=== PATIENT | female | born 1990 | race Caucasian/White ===

== ENCOUNTER 2017-01-28 07:00 | Emergency (ER) | payer BC ==
[2017-01-28 07:22] VITALS: BP 118/61
--- NOTE | 2017-01-28 07:33 | UC ---
Throat Pain/Nasal Cecil HPI - HPI Summary HPI Summary: SINUS CONGESTION, CHEST CONGESTION- PRODUCTIVE COUGH, FATIGUE FOR TWO DAYS. FELT LIGHT HEADED YESTERDAY. CHILLS AND FEVER ON AND OFF. VOMITED ONCE THIS MORNING. PT IS 2 OR 3 MONTHS WELL. HAS NOT HAD HER FIRST OB VISIT YET. [ End ] - History of Current Complaint Chief Complaint: UCRespiratory Stated Complaint: HEAD CONGESTION Time Seen by Provider: 01/28/17 07:24 Hx Obtained From: Patient Hx Last Menstrual Period: SOMETIME IN NOVEMBER OR OCTOBER , PT NOT SURE ?: Yes Onset/Duration: Gradual Onset Severity: Mild Cough: Productive Associated Signs & Symptoms: Positive: Negative - Allergies/Home Medications Allergies/Adverse Reactions: Allergies Allergy/AdvReac Type Severity Reaction Status Date / Time Cefaclor [From [facility]] Allergy Rash Verified 01/28/17 07:11 PMH/Surg Hx/FS Hx/Imm Hx Previously Healthy: Yes - Surgical History Surgical History: Yes Surgery Procedure, Year, and Place: TONSILLECTOMY - Social History Alcohol Use: None Substance Use Type: None Smoking Status (MU): Never Smoked Tobacco - Immunization History Most Recent Influenza Vaccination: immunized at work Most Recent Tetanus Shot: 06/17/15 Most Recent Pneumonia Vaccination: not indicated Review of Systems Constitutional: Fatigue Skin: Negative Eyes: Negative ENT: Sore Throat, Nasal Discharge Respiratory: Cough Cardiovascular: Negative Gastrointestinal: Negative Genitourinary: Negative Motor: Negative Neurovascular: Negative Musculoskeletal: Negative Neurological: Negative Psychological: Negative All Other Systems Reviewed And Are Negative: Yes Physical Exam Triage Information Reviewed: Yes Appearance: Well-Appearing, No Pain Distress, Well-Nourished Vital Signs: Initial Vital Signs Temp 98.4 F 01/28/17 07:12 Pulse 89 01/28/17 07:12 Resp 16 01/28/17 07:12 BP 118/61 01/28/17 07:12 Pulse Ox 100 01/28/17 07:12 Vital Signs Reviewed: Yes Eye Exam: Normal ENT Exam: Normal Dental Exam: Normal Neck exam: Normal Neck: Positive: 1 Respiratory Exam: Normal Cardiovascular Exam: Normal Abdominal Exam: Normal Musculoskeletal Exam: Normal Neurological Exam: Normal Psychological Exam: Normal Skin Exam: Normal Throat Pain/Nasal Course/Dx - Course Assessment/Plan: Patient with history of bronchitis that can become pneumonia. At this time she is in first trimester. We will advise namrata warren Halls Lozenges and if Symptoms worsen with bronchitis symptoms in 4-5 days then start the amoxicillin and counseled patient on C diff and SE - Differential Dx/Diagnosis Differential Diagnosis/HQI/PQRI: Pharyngitis, Sinusitis, Tonsillitis, URI Provider Diagnoses: Upper Respiratory Infection Discharge - Discharge Plan Condition: Good Disposition: HOME Prescriptions: Amoxicillin (*) [Amoxicillin 875 MG (*)] 875 mg PO BID #20 tab Patient Education Materials: Upper Respiratory Infection (ED) Referrals: Doyle CRUZ,Nadia Schmid [Nurse Practitioner] - 3 Days Additional Instructions: As we discussed you likely have a viral infection but if your symptoms worsen over the next 4-5 days then you may start the antibiotic.
== END 2017-01-28 07:58 | disposition home or self-care (01) ==
LOC: UCCORT 07:00
DX: O26.891 Other specified pregnancy related conditions, first trimester (principal); J06.9 Acute upper respiratory infection, unspecified; Z3A.00 Weeks of gestation of pregnancy not specified; Z88.1 Allergy status to other antibiotic agents
CPT/HCPCS: 99212; G0463

== ENCOUNTER 2017-07-24 20:54 | Observation (INO) | payer BC ==
[2017-07-24] MEDS ORDERED: NS 0.9% 1000 ML* 2,000 ML IV ONE (21:20)
[2017-07-24 22:01] LABS: Hematocrit 35 % (35-47); Hemoglobin 11.8 g/dl (12.0-16.0); Mean Corpuscular HGB Conc 34 g/dl (31-36); Mean Corpuscular Hemoglobin 30 pg (27-31); Mean Corpuscular Volume 88 fL (80-97); Mean Platelet Volume 10 um3 (7.4-10.4); Red Cell Distribution Width 13 % (10.5-15); White Blood Count 11.2 10^3/ul (3.5-10.8)
[2017-07-24 22:17] LABS: Albumin 3.3 g/dL (3.2-5.2); Calcium 8.4 mg/dL (8.6-10.3); EGFR African American 154.2 (>60); EGFR Non-African American 119.9 (>60); Globulin 2.5 g/dL (2-4); Potassium 3.7 mmol/L (3.5-5.0); Total Bilirubin 0.5 mg/dL (0.2-1.0); Total Protein 5.8 g/dL (6.4-8.9)
[2017-07-24 22:20] LABS: Troponin I 0.11 ng/mL (<0.04)
[2017-07-24 22:40] LABS: TSH (Thyroid Stimulating Horm) 1.25 mcIU/mL (0.34-5.60)
[2017-07-24 22:55] LABS: Urine Bilirubin Negative (Negative); Urine Glucose Negative (Negative); Urine Nitrite Negative (Negative)
[2017-07-24] MEDS ORDERED: Al Hydrox/Mg Hydrox/Simet LIQ* 30 ML UDC PO PRN (22:58)
[2017-07-24] MEDS ORDERED: Ondansetron INJ* 2 MG/ML VIAL IV PRN (22:58)
[2017-07-24] MEDS ORDERED: Acetaminophen TAB* 325 MG PO PRN (22:58)
--- NOTE | 2017-07-24 23:04 | ED ---
Arpan Partida Gabriel, scribed for Lux Garcia on 07/24/17 at 2112 . Palpitations / Dysrhythmia - HPI Summary HPI Summary: This patient is a 27 year old F BIBA to [facility] accompanied by boyfriend with a chief complaint of palpitations since PROP DRAWER. Pt states 90 minutes ago her HR was over 200BPM.Patient reports sob. Patient denies abd pain, cp, and vaginal bleeding. Patient is 33 weeks . - History of Current Complaint Chief Complaint: EDDysrhythmPalp Time Seen by Provider: 07/24/17 21:00 Hx Obtained From: Patient Onset/Duration: Sudden Onset, Still Present - but has dropped Timing: Constant Aggravating: Position - lying - Allergy/Home Medications Allergies/Adverse Reactions: Allergies Allergy/AdvReac Type Severity Reaction Status Date / Time Cefaclor [From [facility]] Allergy Hives Verified 07/24/17 21:02 Home Medications: Home Medications Vitamin [Calna] 1 tab PO 07/24/17 [History] PMH/Surg Hx/FS Hx/Imm Hx Previously Healthy: No Endocrine/Hematology History: Denies: Hx Diabetes Cardiovascular History: Reports: Other Cardiovascular Problems/Disorders - hx of tachycardia Denies: Hx Myocardial Infarction Respiratory History: Denies: Hx Asthma, Hx Chronic Obstructive Pulmonary Disease (COPD) Sensory History: Denies: Hx Legally Blind Infectious Disease History: No Infectious Disease History: Denies: Traveled Outside the [place] in Last 30 Days - Family History Known Family History: Negative: Hypertension, Diabetes - Social History Alcohol Use: None Hx Substance Use: No Substance Use Type: Reports: None Hx Tobacco Use: No Smoking Status (MU): Never Smoked Tobacco Review of Systems Positive: Palpitations. Negative: Chest Pain Positive: Shortness Of Breath Negative: Abdominal Pain Genitourinary: Negative - vaginal bleeding All Other Systems Reviewed And Are Negative: Yes Physical Exam - Summary Physical Exam Summary: Appearance: Well appearing, no pain distress Skin: warm, dry, reflects adequate perfusion Head/face: normal Eyes: EOMI, OSCAR ENT: normal Neck: supple, non-tender Respiratory: CTA, breath sounds present Cardiovascular: Tachycardic, pulses symmetrical Abdomen: . Distended ABD Bowel: present Musculoskeletal: normal, strength/ROM intact Neuro: normal, sensory motor intact, A&Ox3 Triage Information Reviewed: Yes Vital Signs On Initial Exam: Initial Vitals Temp Pulse Resp BP Pulse Ox 97.8 F 135 23 145/95 99 07/24/17 21:00 07/24/17 21:00 07/24/17 21:00 07/24/17 21:00 07/24/17 21:00 Vital Signs Reviewed: Yes Diagnostics - Vital Signs Vital Signs Temp Pulse Resp BP Pulse Ox 07/24/17 21:00 97.8 F 135 23 145/95 99 - Laboratory Lab Results: Lab Results 07/24/17 07/24/17 07/24/17 Range/Units 21:45 21:45 21:45 WBC 11.2 H (3.5-10.8) 10^3/ul RBC 4.00 (4.0-5.4) 10^6/ul Hgb 11.8 L (12.0-16.0) g/dl Hct 35 (35-47) % MCV 88 (80-97) fL MCH 30 (27-31) pg MCHC 34 (31-36) g/dl RDW 13 (10.5-15) % Plt Count 164 (150-450) 10^3/ul MPV 10 (7.4-10.4) um3 Neut % (Auto) 73.7 (38-83) % Lymph % (Auto) 19.7 L (25-47) % [place] % (Auto) 5.6 (1-9) % Eos % (Auto) 0.7 (0-6) % Baso % (Auto) 0.3 (0-2) % Absolute Neuts (auto) 8.3 H (1.5-7.7) 10^3/ul Absolute Lymphs (auto) 2.2 (1.0-4.8) 10^3/ul Absolute Monos (auto) 0.6 (0-0.8) 10^3/ul Absolute Eos (auto) 0.1 (0-0.6) 10^3/ul Absolute Basos (auto) 0 (0-0.2) 10^3/ul Absolute Nucleated RBC 0.01 10^3/ul Nucleated RBC % 0 D-Dimer, Quantitative 261 H (Less Than 230) ng/mL Sodium 136 (133-145) mmol/L Potassium 3.7 (3.5-5.0) mmol/L Chloride 106 (101-111) mmol/L Carbon Dioxide 24 (22-32) mmol/L Anion Gap 6 (2-11) mmol/L BUN 9 (6-24) mg/dL Creatinine 0.60 (0.51-0.95) mg/dL Est GFR ( Amer) 154.2 (>60) Est GFR (Non-Af Amer) 119.9 (>60) BUN/Creatinine Ratio 15.0 (8-20) Glucose 106 H (70-100) mg/dL Calcium 8.4 L (8.6-10.3) mg/dL Total Bilirubin 0.50 (0.2-1.0) mg/dL AST 14 (13-39) U/L ALT 11 (7-52) U/L Alkaline Phosphatase 100 (34-104) U/L Troponin I 0.11 H* (<0.04) ng/mL Total Protein 5.8 L (6.4-8.9) g/dL Albumin 3.3 (3.2-5.2) g/dL Globulin 2.5 (2-4) g/dL Albumin/Globulin Ratio 1.3 (1-3) TSH 1.25 (0.34-5.60) mcIU/mL Urine Color Urine Appearance Urine pH (5-9) Ur Specific [place] (1.010-1.030) Urine Protein (Negative) Urine Ketones (Negative) Urine Blood (Negative) Urine Nitrate (Negative) Urine Bilirubin (Negative) Urine Urobilinogen (Negative) Ur Leukocyte Esterase (Negative) Urine Glucose (Negative) 07/24/ Range/Units 22:27 WBC (3.5-10.8) 10^3/ul RBC (4.0-5.4) 10^6/ul Hgb (12.0-16.0) g/dl Hct (35-47) % MCV (80-97) fL MCH (27-31) pg MCHC (31-36) g/dl RDW (10.5-15) % Plt Count (150-450) 10^3/ul MPV (7.4-10.4) um3 Neut % (Auto) (38-83) % Lymph % (Auto) (25-47) % [place] % (Auto) (1-9) % Eos % (Auto) (0-6) % Baso % (Auto) (0-2) % Absolute Neuts (auto) (1.5-7.7) 10^3/ul Absolute Lymphs (auto) (1.0-4.8) 10^3/ul Absolute Monos (auto) (0-0.8) 10^3/ul Absolute Eos (auto) (0-0.6) 10^3/ul Absolute Basos (auto) (0-0.2) 10^3/ul Absolute Nucleated RBC 10^3/ul Nucleated RBC % D-Dimer, Quantitative (Less Than 230) ng/mL Sodium (133-145) mmol/L Potassium (3.5-5.0) mmol/L Chloride (101-111) mmol/L Carbon Dioxide (22-32) mmol/L Anion Gap (2-11) mmol/L BUN (6-24) mg/dL Creatinine (0.51-0.95) mg/dL Est GFR ( Amer) (>60) Est GFR (Non-Af Amer) (>60) BUN/Creatinine Ratio (8-20) Glucose (70-100) mg/dL Calcium (8.6-10.3) mg/dL Total Bilirubin (0.2-1.0) mg/dL AST (13-39) U/L ALT (7-52) U/L Alkaline Phosphatase (34-104) U/L Troponin I (<0.04) ng/mL Total Protein (6.4-8.9) g/dL Albumin (3.2-5.2) g/dL Globulin (2-4) g/dL Albumin/Globulin Ratio (1-3) TSH (0.34-5.60) mcIU/mL Urine Color Straw Urine Appearance Clear Urine pH 6.0 (5-9) Ur Specific [place] 1.003 L (1.010-1.030) Urine Protein Negative (Negative) Urine Ketones Negative (Negative) Urine Blood Negative (Negative) Urine Nitrate Negative (Negative) Urine Bilirubin Negative (Negative) Urine Urobilinogen Negative (Negative) Ur Leukocyte Esterase Negative (Negative) Urine Glucose Negative (Negative) Result Diagrams: 07/24/17 21:45 07/24/17 21:45 Lab Statement: Any lab studies that have been ordered have been reviewed, and results considered in the medical decision making process. - EKG 21:08 Cardiac Rate: Tachycardia EKG Rhythm: Sinus Tachycardia - 131 BPM EKG Interpretation: No acute changes Course/Dx - Course Assessment/Plan: This patient is a 27 year old F BIBA to [facility] accompanied by boyfriend with a chief complaint of palpitations since 90 min PROP DRAWER. . An EKG reveals sinus tachycardia at 131 BPM. Blood work was taken with positive troponins and . In the ED course the patient was given IV fluids. We discussed patient care with Dr. Lisette bassett and they agreed to admit the patient. Patient will be admitted for palpitations. The patient is agreeable with this plan. - Diagnoses Differential Diagnosis/HQI/PQRI: Positive: Coronary Artery Disease, Paroxymal SVT Provider Diagnoses: Palpitations, Troponin level elevated, - Physician Notifications Discussed Care Of Patient With: Charisma Knox Time Discussed With Above Provider: 22:32 Instructed by Provider To: Other - We discussed patient care with Dr. Lisette bassett and they agreed to admit the patient. Discharge - Discharge Plan Condition: Stable Disposition: ADMITTED TO [facility] Referrals: Luis Luna DO [Primary Care Provider] - The documentation as recorded by the Arpan arguello Gabriel accurately reflects the service I personally performed and the decisions made by , Lux Gracia.
[2017-07-24] MEDS ORDERED: Aspirin EC Low Dose* 81 MG TAB.EC PO ONE (23:12)
[2017-07-24 23:23] LABS: Magnesium 1.7 mg/dL (1.9-2.7)
[2017-07-25] MEDS ORDERED: Aspirin EC Low Dose* 81 MG TAB.EC ONE (00:03)
[2017-07-25] MEDS ORDERED: Magnesium Sulfate 2 GM IV* 2 GM/50 ML BAG IVPB ONE (01:18)
[2017-07-25] MEDS ORDERED: Heparin DRIP 25,000 UNITS(*) 25,000 UNITS/500 ML BAG IVPB SCH (01:30)
[2017-07-25] MEDS ORDERED: Heparin VIAL(*) 5000 UNITS/ML VIAL (FIVE THOUSAND) IV SCH (02:00)
--- NOTE | 2017-07-25 04:43 | HP ---
CC: Dr. Luis Luna; Dr. Hans Munoz; Dr. Miguelangel Skinner * HISTORY AND PHYSICAL: DATE OF ADMISSION: 07/24/17 TIME OF EVALUATION: 2300. PRIMARY CARE PHYSICIAN: Dr. Luis Luna. TOBACCO BALER: Hans Munoz MD CUSTOMER SUCCESS REPRESENTATIVE: Miguelangel Skinner MD CHIEF COMPLAINT: Palpitations, chest pain. HISTORY OF PRESENT ILLNESS: This is a 27-year-old female with a past medical history of SVT, who is also 33 weeks , who presented to the emergency room via EMS after having an hour and a half of SVT. She states her heart rate was greater than 230. She tried vagal maneuvers with no improvement. She called TOBACCO BALER on-call and they recommended calling EMS and come in to the emergency room. By the time patient arrived, her heart rate had improved down to the 130s and now is in the low 100s. She states she has slight chest discomfort, which she describes as soreness. No pressure or pain. No shortness of breath. No nausea. She is starting to develop a headache, otherwise remaining review of systems is negative. She states she feels the baby moving and is active. She states 4 or 5 years ago she was diagnosed with SVT. She was followed by a hat conditioner in [place] where they started her on blood pressure medication, oxygen, fluids, and Holter monitor. She has since been off the blood pressure pills. Two years ago, she had an attack of SVT off her blood pressure medications that she did not follow up with. When she was in her first trimester, she had palpitations, non-SVT, she followed up with the hat conditioner, they did not want to start her on any medication until she was out of the first trimester as they thought it would get better and it did. In the emergency room, the patient had labs, EKG, she was given a liter of normal saline, was referred to the hospitalist service for further evaluation. PAST MEDICAL HISTORY: 1. History of SVT, followed by Cardiology in [place]. 2. Thirty-three weeks . MEDICATIONS: vitamin every 2 days. ALLERGIES: CEFACLOR, hives. FAMILY HISTORY: No history of SVT in the family. SOCIAL HISTORY: The patient lives at home with her . This is her second . She has mentioned she had no problems with her first with SVT. 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 No history of smoking, alcohol, or illicit drugs. Her healthcare proxy is her . Code status is full code. REVIEW OF SYSTEMS: A 14-point review of systems reviewed, pertinent positives are mentioned in the HPI, otherwise negative. PHYSICAL EXAMINATION GENERAL: In no acute distress. Resting comfortably with her and father -in- law at the bedside. VITAL SIGNS: Temperature 97.8, pulse rate 109, respiratory rate 16, oxygen saturation 99% on room air, blood pressure 103/80. HEENT: Head normocephalic. Pupils equal and reactive, anicteric. Oropharynx, mucous membranes are moist. NECK: Supple. No lymphadenopathy. LUNGS: Clear to auscultation. No wheeze, rhonchi or rales. CARDIAC: Tachycardia with soft systolic murmur heard throughout. ABDOMEN: Soft, consistent with a gestational . EXTREMITIES: No clubbing, cyanosis or edema. +2 DPs. NEUROLOGIC: Alert and oriented x3. No focal neurologic deficits. LABORATORY DATA: White count 11.2, hemoglobin 11.8, hematocrit 35, platelets 164. D-dimer 261. Sodium 136, potassium 3.7, chloride 106, bicarb 24, BUN 9, creatinine 0.6, glucose 106. Troponin 0.11. TSH 1.25. Urinalysis is unremarkable. RADIOGRAPHIC DATA: EKG shows sinus tachycardia with no significant abnormalities. Heart rate 130. ASSESSMENT AND PLAN: This is a 27-year-old female with past medical history of supraventricular tachycardia, is 33 weeks , presents to the emergency room with supraventricular tachycardia. 1. Supraventricular tachycardia. Assessment: The patient was able to convert out of supraventricular tachycardia using vagal maneuvers; however, her supraventricular tachycardia persisted for over an hour and a half. Her troponin bump is likely related to her supraventricular tachycardia. No significant chest pain at this time. Unremarkable EKG changes. I did speak with OB, who agreed with a baby aspirin and they are going to run a strip to review. I also spoke with Dr. Skinner regarding patient's bumped troponin. He recommended repeating troponin, if it is higher than initial one, we will start her on heparin drip. Otherwise, we will admit her to [address] [place] [address], trend her troponins, obtain an echo, waiting on a magnesium level to come back and repeat an EKG now that her heart rate has lowered and follow up with Cardiology and TOBACCO BALER in the morning. 2. FEN: Place her on regular diet. 3. DVT prophylaxis: The patient is low risk. We will encourage ambulation. 4. Code status: Full code. TIME SPENT: Patient time greater than 60 minutes were spent doing history and physical, more than half the time spent in direct patient contact. [id number]/CPS #: [id number] UDAY
[2017-07-25 07:25] VITALS: BP 112/73
[2017-07-25] MEDS ORDERED: Aspirin EC Low Dose* 81 MG TAB.EC PO SCH (09:00)
--- NOTE | 2017-07-25 19:32 | CONS ---
CC: Dr. Hans Munoz; Dr. Luna, [facility]. * CARDIOLOGY CONSULTATION: DATE OF CONSULT: 07/25/17. INDICATION FOR CONSULTATION: Chest pain, SVT. HISTORY OF PRESENT ILLNESS: Patient is a 27-year-old female with a history of SVT. She is currently 33 weeks . Patient was at home yesterday and had an onset of SVT that lasted for approximately an hour and then decided to call the ambulance. On arrival, she was in SVT with a stable blood pressure. She was transported to the emergency room. On arrival to the emergency room, patient broke to a sinus tachycardia at 130 beats per minute and ultimately came down to a heart rate of 100. During that time, the patient had mild chest pain. She denied any shortness of breath. She denied any orthopnea. She denied any lightheadedness or dizziness. PAST MEDICAL HISTORY: Significant for SVT. Her last episode was in 2011. She takes no chronic medications for it. She is 33 weeks . CURRENT MEDICATIONS: vitamins. ALLERGIES: To CEFACLOR. FAMILY HISTORY: No family history of early coronary artery disease. SOCIAL HISTORY: She lives with her . 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 This is her second . She denies alcohol or tobacco use. PHYSICAL EXAM: Height is 5 feet 4 inches, weight is 163 pounds, temperature 97.5, heart rate 104, respiratory rate is 20, blood pressure 124/74, oxygen saturation 100% on room air. Sclerae anicteric. Oropharynx is pink without erythema. Carotids are 2+ without bruits. JVD is normal. Thyroid is normal. Cardiac Exam: S1, S2 without any murmurs, rubs, or gallops. Lungs are clear to auscultation. Abdomen is 33 weeks gravid. Normoactive bowel sounds. Extremities show minimal edema. She has 2+ pulses throughout. Patient is awake and alert and oriented. She moves all 4 extremities equally. LABORATORY DATA/DIAGNOSTIC STUDIES: CBC within normal limits. Chemistries within normal limits. BNP is 25. TSH 1.25. Initial troponin 0.11. Peak troponin 0.39. AST and ALT within normal limits. EKG demonstrates sinus tachycardia, otherwise unremarkable. Echocardiogram is pending. IMPRESSION: This is a 27-year-old female who has a history of supraventricular tachycardia, who had a prolonged episode of supraventricular tachycardia yesterday. In the emergency room, she broke to normal sinus rhythm on her own. Patient was given hydration. At this point, I do not think any issues occur with supraventricular tachycardia. This is her first episode in 5 years. Patient's minimal elevation in troponin is due to her long episode of supraventricular tachycardia. Patient will get an echocardiogram today. The patient will be discharged with metoprolol tartrate 25 mg to be taken as needed when she has an episode of supraventricular tachycardia. I will see the patient in followup. This case was discussed with Dr. Pena. [id number]/CPS #: [id number] UDAY
--- NOTE | 2017-07-26 00:51 | DS ---
CC: Dr. Krause; Dr. Luna DISCHARGE SUMMARY: DATE OF ADMISSION: DATE OF DISCHARGE: 07/25/17 HISTORY: This 27-year-old woman came with palpitations, shortness of breath, and lightheadedness. She had a history of SVT about 2 or 3 years ago. She sees the medical anthropologist in [place] on an infrequent basis. She does generally have this type of palpitation. She immediately recognized that she had SVT again. By the time she got to the emergency room, she had had it for about an hour and half. Vagal maneuvers did not help. The patient did eventually convert with vagal maneuvers. She is seen in consultation by Dr. Alexis who recommended using metoprolol on a p.r.n. basis and waiting 10 minutes to take the metoprolol and then call him or another provider for further guidance. She did have an echocardiogram on the day of discharge. I do not have that report as yet. I note her troponin peaked at 0.39, almost certainly related to her tachycardia. I note she is 33 weeks . FINAL DIAGNOSES: 1. Paroxysmal supraventricular tachycardia. 2. Thirty-three weeks . DISCHARGE MEDICATIONS: 1. Metoprolol tartrate 25 mg b.i.d. p.r.n. for palpitations, dispensed 10. 2. vitamin 1 daily. [id number]/[facility] #: [id number] MTDD
== END 2017-07-25 11:30 | disposition home or self-care (01) ==
LOC: EDSEX → ED 20:54 → MEDTELE 22:58 → MERGE 22:58
PROVIDERS: ADMIT Pediatrics; ATTEND Internal Medicine
DX: I47.1 Supraventricular tachycardia (principal); O26.893 Other specified pregnancy related conditions, third trimester; Z3A.33 33 weeks gestation of pregnancy; R06.02 Shortness of breath; R42 Dizziness and giddiness; R07.9 Chest pain, unspecified; R74.8 Abnormal levels of other serum enzymes
CPT/HCPCS: 36415; 80053; 81003; 83735; 83880; 84443; 84484; 85025; 85379; 85610; 85730; 93005; 93306; 96365; 96366; 96367; 96372; 99284; A9270-GY; G0378; J1644; J3475

== ENCOUNTER 2017-09-04 07:12 | Inpatient (IN) | payer BC ==
[2017-09-04] MEDS ORDERED: Oxytocin in LR* 20 UNITS/1,000 ML BAG IVPB SCH ×2 (09:00→17:00)
[2017-09-04 09:19] LABS: ABS Basophils 0 10^3/ul (0-0.2); ABS Eosinophils 0.1 10^3/ul (0-0.6); ABS Lymphocytes 1.6 10^3/ul (1.0-4.8); ABS Monocytes 0.5 10^3/ul (0-0.8); ABS Neutrophils 5.3 10^3/ul (1.5-7.7); ABS Nucleated RBC 0 10^3/ul; Eosinophil % 1.5 % (0-6); Hematocrit 35 % (35-47); Hemoglobin 11.6 g/dl (12.0-16.0); Lymphocyte % 21.4 % (25-47); Mean Corpuscular HGB Conc 34 g/dl (31-36); Mean Corpuscular Hemoglobin 29 pg (27-31); Mean Corpuscular Volume 87 fL (80-97); Mean Platelet Volume 10 um3 (7.4-10.4); Nucleated Red Blood Cells % 0; Platelet Count 176 10^3/ul (150-450); Red Blood Count 3.96 10^6/ul (4.0-5.4); Red Cell Distribution Width 13 % (10.5-15); White Blood Count 7.6 10^3/ul (3.5-10.8)
[2017-09-04] MEDS ORDERED: OBEPIDURAL* 250 ML EPIDURAL ONE (12:55)
[2017-09-04] MEDS ORDERED: Phenylephrine IV* 40 MCG/ML 10 ML SYRINGE IV PUSH PRN ×2 (13:23)
[2017-09-04] MEDS ORDERED: Famotidine TAB* 20 MG PO PRN (13:23)
[2017-09-04] MEDS ORDERED: Sodium Citrate/Citric Acid* 15 ML UDC PO PRN (13:23)
[2017-09-04] MEDS ORDERED: OBEPIDURAL* 250 ML EPIDURAL SCH (14:00)
[2017-09-04] MEDS ORDERED: Glycerin ADULT SUPP PR PRN (16:02)
[2017-09-04] MEDS ORDERED: Witch Hazel PAD* JAR TOPICAL PRN (16:02)
[2017-09-04] MEDS ORDERED: Dibucaine 1% 28.35 GM TUBE PR PRN (16:02)
[2017-09-04] MEDS ORDERED: Acetaminophen TAB* 325 MG PO PRN (16:02)
[2017-09-04] MEDS: Ibuprofen TAB* 600 MG PO PRN (17:20)
[2017-09-04] MEDS ORDERED: Simethicone TAB* 80 MG TAB.CHEW PO SCH (17:30)
[2017-09-04] MEDS: Docusate CAP* 100 MG PO SCH (21:57)
[2017-09-05] MEDS: Ibuprofen TAB* 600 MG PO PRN ×2 (04:08→14:09)
[2017-09-05 06:41] LABS: ABS Basophils 0 10^3/ul (0-0.2); ABS Eosinophils 0.2 10^3/ul (0-0.6); ABS Lymphocytes 1.9 10^3/ul (1.0-4.8); ABS Monocytes 0.6 10^3/ul (0-0.8); ABS Neutrophils 6.2 10^3/ul (1.5-7.7); ABS Nucleated RBC 0 10^3/ul; Eosinophil % 1.7 % (0-6); Hematocrit 32 % (35-47); Hemoglobin 10.7 g/dl (12.0-16.0); Lymphocyte % 21.8 % (25-47); Mean Corpuscular HGB Conc 34 g/dl (31-36); Mean Corpuscular Hemoglobin 29 pg (27-31); Mean Corpuscular Volume 87 fL (80-97); Mean Platelet Volume 10 um3 (7.4-10.4); Nucleated Red Blood Cells % 0; Platelet Count 148 10^3/ul (150-450); Red Blood Count 3.64 10^6/ul (4.0-5.4); Red Cell Distribution Width 13 % (10.5-15); White Blood Count 8.9 10^3/ul (3.5-10.8)
[2017-09-05] MEDS ORDERED: Ferrous Gluconate TAB* 324 MG TAB PO SCH (09:00)
[2017-09-05] MEDS ORDERED: Measles, Mumps,Rubella VACC* 0.5 ML/VIAL SUBCUT ONE (09:00)
[2017-09-05] MEDS: Docusate CAP* 100 MG PO SCH ×2 (10:35→14:09)
[2017-09-05 11:55] VITALS: BP 123/79
== END 2017-09-05 17:33 | disposition home or self-care (01) | DRG 560 ==
LOC: MCHOBOUT 07:12 → MCHOB 08:49
PROVIDERS: ADMIT Obstetrics & Gynecology; ATTEND Obstetrics & Gynecology
PROC: 10E0XZZ Delivery of Products of Conception, External Approach (ICD-10-PCS; principal; 2017-09-04)
PROC: 10907ZC Drainage of Amniotic Fluid, Therapeutic from Products of Conception, Via Natural or Artificial Opening (ICD-10-PCS; 2017-09-04)
PROC: 3E033VJ Introduction of Other Hormone into Peripheral Vein, Percutaneous Approach (ICD-10-PCS; 2017-09-04)
DX: O80 Encounter for full-term uncomplicated delivery (principal); Z37.0 Single live birth; Z3A.39 39 weeks gestation of pregnancy
CPT/HCPCS: 36415; 85025; 86850; 86900; 86901; A9270-GY

== ENCOUNTER 2017-10-17 10:52 | Emergency (ER) | payer BC ==
--- NOTE | 2017-10-17 12:13 | UC ---
Throat Pain/Nasal Cecil HPI - HPI Summary HPI Summary: pt is c/o sinus congestion. it began as sinus headache about 6 days ago and then 4 days into that, pt developed the sinus congestion. the congestion was yellow but is now clear. no fever self tx with IB. pt has a hx of svt and is breast feeding thuis no additional otc tx. - History of Current Complaint Stated Complaint: SINUS Time Seen by Provider: 10/17/17 11:43 Hx Obtained From: Patient Hx Last Menstrual Period: SOMETIME IN NOVEMBER OR OCTOBER , PT NOT SURE ?: No Onset/Duration: Gradual Onset Severity: Moderate Associated Signs & Symptoms: Positive: Sinus Discomfort, Nasal Discharge. Negative: Fever - Epiglottits Risk Factors Epiglottis Risk Factors: Negative - Allergies/Home Medications Allergies/Adverse Reactions: Allergies Allergy/AdvReac Type Severity Reaction Status Date / Time cefaclor [From [facility]] Allergy Rash Verified 10/17/17 12:29 Home Medications: Home Medications Fenugreek Seed Extract [Fenugreek Blood Sugar Hea] 1,000 mg PO TID 10/17/17 [ History Confirmed 10/17/17] PMH/Surg Hx/FS Hx/Imm Hx - Additional Past Medical History Additional PMH: about 1 month post . hx SVT-no tx - Surgical History Surgical History: Yes Surgery Procedure, Year, and Place: tonsillectomy - Family History Known Family History: Negative: Hypertension, Diabetes - Social History Lives: With Family Alcohol Use: None Substance Use Type: None Smoking Status (MU): Never Smoked Tobacco Have You Smoked in the Last Year: Yes - Immunization History Most Recent Influenza Vaccination: immunized at work Most Recent Tetanus Shot: 06/17/15 Most Recent Pneumonia Vaccination: not indicated Review of Systems Constitutional: Negative Skin: Negative Eyes: Negative ENT: Nasal Discharge, Sinus Congestion, Sinus Pain/Tenderness Respiratory: Negative Cardiovascular: Negative Gastrointestinal: Negative Genitourinary: Negative Motor: Negative Neurovascular: Negative Musculoskeletal: Negative Neurological: Negative Psychological: Negative Is Patient Immunocompromised?: No All Other Systems Reviewed And Are Negative: Yes Physical Exam Triage Information Reviewed: Yes Appearance: Well-Appearing Vital Signs Reviewed: Yes Eyes: Positive: Conjunctiva Clear ENT: Positive: Pharynx normal, Nasal congestion, TMs normal, Uvula midline. Negative: Nasal drainage, Sinus tenderness Neck: Positive: Supple, Nontender, No Lymphadenopathy Respiratory: Positive: Lungs clear, Normal breath sounds, No respiratory distress Cardiovascular: Positive: RRR, No Murmur, Pulses Normal Abdomen Description: Positive: Nontender, No Organomegaly, Soft Bowel Sounds: Positive: Present Musculoskeletal: Positive: No Edema Neurological: Positive: Alert Psychological: Positive: Age Appropriate Behavior Skin Exam: Normal Throat Pain/Nasal Course/Dx - Course Course Of Treatment: s/s's improving. nasal drainage x 4. no antibiotics indicated. will avoid decongestants given hx svt. pt breat feeding as well thus nasal saline flush advised. - Differential Dx/Diagnosis Provider Diagnoses: Upper respiratory infection Discharge - Discharge Plan Condition: Stable Disposition: HOME Patient Education Materials: Upper Respiratory Infection (ED) Referrals: Luis Luna DO [Doctor of Osteopathy] - 5 Days
[2017-10-17 12:36] VITALS: BP 123/73
== END 2017-10-17 13:00 | disposition home or self-care (01) ==
LOC: UCCORT 10:52
DX: O90.89 Other complications of the puerperium, not elsewhere classified (principal); J06.9 Acute upper respiratory infection, unspecified
CPT/HCPCS: 99211; G0463

== ENCOUNTER 2018-06-28 07:03 | Emergency (ER) | payer BC ==
[2018-06-28 07:50] VITALS: BP 125/75
[2018-06-28] MEDS ORDERED: Clarithromycin TAB* 500 MG PO ONE (08:16)
--- NOTE | 2018-06-28 08:20 | ED ---
Throat Pain/Nasal Congestion - HPI Summary HPI Summary: 28 yr old female with sore throat for couple of days, and has children at home with positive strep throat. She has no other symptoms. No runny nose, no cough. No drooling. No other complaints. - History of Current Complaint Chief Complaint: UCRespiratory Time Seen by Provider: 06/28/18 07:52 - Allergies/Home Medications Allergies/Adverse Reactions: Allergies Allergy/AdvReac Type Severity Reaction Status Date / Time cefaclor [From [facility]] Allergy Rash Verified 06/28/18 07:47 Home Medications: Home Medications Norgestimate-Ethinyl Estradiol [Tri-Sprintec 0.18/0.215/0.25 mg-35 Mcg] 1 tab PO DAILY 06/28/18 [History Confirmed 06/28/18] PMH/Surg Hx/FS Hx/Imm Hx Previously Healthy: Yes Endocrine/Hematology History: Denies: Hx Diabetes, Hx Thyroid Disease Cardiovascular History: Reports: Hx Hypertension - NO LONGER TREATED, Other Cardiovascular Problems/Disorders - hx of tachycardia Denies: Hx Congestive Heart Failure, Hx Deep Vein Thrombosis, Hx Myocardial Infarction, Hx Pacemaker/ICD Respiratory History: Denies: Hx Asthma, Hx Chronic Obstructive Pulmonary Disease (COPD), Hx Lung Cancer, Hx Pneumonia, Hx Pulmonary Embolism GI History: Denies: Hx Gall Bladder Disease, Hx Gastrointestinal Bleed, Hx Ulcer, Hx Urosepsis History: Denies: Hx Kidney Infection, Hx Kidney Stones, Hx Renal Disease, Other Problems/Disorders Sensory History: Denies: Hx Contacts or Glasses, Hx Legally Blind, Hx Hearing Aid Opthamlomology History: Denies: Hx Contacts or Glasses, Hx Legally Blind Neurological History: Denies: Hx Dementia, Hx Migraine, Hx Seizures, Hx Transient Ischemic Attacks (TIA) Psychiatric History: Denies: Hx Anxiety, Hx Depression, Hx Schizophrenia, Hx Bipolar Disorder, Other Psychiatric Issues/Disorders - Surgical History Surgery Procedure, Year, and Place: tonsillectomy - Immunization History Date of Tetanus Vaccine: unk Date of Influenza Vaccine: unk Infectious Disease History: No Infectious Disease History: Denies: Traveled Outside the [place] in Last 30 Days - Family History Known Family History: Negative: Hypertension, Diabetes - Social History Occupation: Employed Full-time Alcohol Use: Occasionally Hx Substance Use: No Substance Use Type: Reports: None Hx Tobacco Use: No Smoking Status (MU): Never Smoked Tobacco Have You Smoked in the Last Year: Yes Review of Systems Constitutional: Negative Positive: Sore Throat All Other Systems Reviewed And Are Negative: Yes Physical Exam Triage Information Reviewed: Yes Vital Signs On Initial Exam: Initial Vitals Temp Pulse Resp BP Pulse Ox 97.2 F 80 14 125/75 99 06/28/18 07:45 06/28/18 07:45 06/28/18 07:45 06/28/18 07:45 06/28/18 07:45 Vital Signs Reviewed: Yes Appearance: Positive: Well-Appearing, No Pain Distress Skin: Positive: Warm, Skin Color Reflects Adequate Perfusion Head/Face: Positive: Normal Head/Face Inspection Eyes: Positive: EOMI ENT: Positive: Pharyngeal erythema, TMs normal, Uvula midline. Negative: Nasal congestion, Muffled voice, Hoarse voice Neck: Positive: Nontender Respiratory/Lung Sounds: Positive: Clear to Auscultation, Breath Sounds Present Cardiovascular: Positive: RRR. Negative: Murmur Abdomen Description: Positive: Nontender Musculoskeletal: Positive: Strength/ROM Intact Neurological: Positive: Sensory/Motor Intact, Alert, Oriented to Person Place, Time, CN Intact II-III Psychiatric: Positive: Normal - Chase Coma Scale Best Eye Response: 4 - Spontaneous Best Motor Response: 6 - Obeys Commands Best Verbal Response: 5 - Oriented Coma Scale Total: 15 Diagnostics - Vital Signs Vital Signs Temp Pulse Resp BP Pulse Ox 06/28/18 07:45 97.2 F 80 14 125/75 99 - Laboratory Lab Results: Lab Results 06/28/18 Range/Units 07:57 Group A Strep Rapid Negative (Negative) Lab Statement: Any lab studies that have been ordered have been reviewed, and results considered in the medical decision making process. EENT Course/Dx - Course Course Of Treatment: 28 yr old with pharyngitis. Rx biaxin. DC home. Children at home with strep. Will treat this patient. - Diagnoses Provider Diagnoses: Pharyngitis Discharge - Sign-Out/Discharge Documenting (check all that apply): Patient Departure All imaging exams completed and their final reports reviewed: No Studies - Discharge Plan Condition: Good Disposition: HOME Prescriptions: Clarithromycin TAB* [Biaxin 500 MG TAB*] 500 mg PO BID #20 tab Patient Education Materials: Pharyngitis (ED) Referrals: Luis Luna DO [Primary Care Provider] - 2 Days - Billing Disposition and Condition Condition: GOOD Disposition: Home
== END 2018-06-28 08:21 | disposition home or self-care (01) ==
LOC: UCCORT 07:03
DX: J02.9 Acute pharyngitis, unspecified (principal)
CPT/HCPCS: 87651; 99212; A9270-GY; G0463

== ENCOUNTER 2019-05-19 17:26 | Emergency (ER) | payer BC ==
--- NOTE | 2019-05-19 19:23 | ED ---
Palpitations / Dysrhythmia - HPI Summary HPI Summary: The patient is a 28 y/o F presenting to [facility] with a chief complaint of constant tachycardia onset at 1200 yesterday with intermittent episodes of worsening. She reports that her heart rate symptoms, which are a resting rate in the high 80s to low 90s aggravated into the 120s-130s, are not like palpitations, and there is no chest pain, but there is mild chest discomfort, SOB, and pain with breathing associated. She additionally c/o dizziness and two migraines today, which she relieved using Ibuprofen at home. She denies any fevers, rhinorrhea, cough, bowel or bladder incontinence, constipation, urinary retention, or rashes. Currently, her symptoms are rated 2/10 in severity. She states that she drinks 1-2 coffees a day, and sometimes she drinks energy drinks but not often. She notes hx of SVT and anxiety controlled by Zoloft, and she also takes Trazadone at night for sleeping as needed. She has had two similar episodes in the past with admission a year ago and once five years prior to that. She recently had blood work drawn last week without significant abnormalities except for slight hypomagnesemia. No recent chest colds or other sicknesses. No recent change in environment or diet. PMHx: tachycardia, SVT, anxiety. Oral contraceptive use. FHx: thyroid disease (she has been tested in the past and hasn't been diagnosed). Nonsmoker, occasional EtOH, no substance use. Medications reviewed. Allergies noted. - History of Current Complaint Chief Complaint: EDDysrhythmPalp Time Seen by Provider: 05/19/19 19:13 Hx Obtained From: Patient Onset/Duration: Sudden Onset, Lasting Days - since yesterday at 1200, Still Present Timing: Constant Severity Initially: Mild Severity Currently: Moderate Character: Fast Aggravating: Exertion Alleviating: Rest Associated Signs & Symptoms: Dizzy, Shortness of Breath - painful breathing - Allergy/Home Medications Allergies/Adverse Reactions: Allergies Allergy/AdvReac Type Severity Reaction Status Date / Time [facility] Allergy Rash Verified 06/28/18 07:47 Home Medications: Home Medications Sertraline* [Zoloft*] 50 mg PO DAILY 05/19/19 [History Confirmed 05/19/19] PMH/Surg Hx/FS Hx/Imm Hx Endocrine/Hematology History: Denies: Hx Diabetes, Hx Thyroid Disease Cardiovascular History: Reports: Hx Hypertension - NO LONGER TREATED, Other Cardiovascular Problems/Disorders - hx of tachycardia, SVT Denies: Hx Congestive Heart Failure, Hx Deep Vein Thrombosis, Hx Myocardial Infarction, Hx Pacemaker/ICD Respiratory History: Denies: Hx Asthma, Hx Chronic Obstructive Pulmonary Disease (COPD), Hx Lung Cancer, Hx Pneumonia, Hx Pulmonary Embolism GI History: Denies: Hx Gall Bladder Disease, Hx Gastrointestinal Bleed, Hx Ulcer, Hx Urosepsis History: Denies: Hx Kidney Infection, Hx Kidney Stones, Hx Renal Disease, Other Problems/Disorders Sensory History: Denies: Hx Contacts or Glasses, Hx Legally Blind Opthamlomology History: Denies: Hx Contacts or Glasses, Hx Legally Blind Neurological History: Denies: Hx Dementia, Hx Migraine, Hx Seizures, Hx Transient Ischemic Attacks (TIA) Psychiatric History: Reports: Hx Anxiety Denies: Hx Depression, Hx Schizophrenia, Hx Bipolar Disorder, Other Psychiatric Issues/Disorders - Surgical History Surgical History: Yes Surgery Procedure, Year, and Place: tonsillectomy - Immunization History Date of Tetanus Vaccine: unk Date of Influenza Vaccine: unk Infectious Disease History: No Infectious Disease History: Denies: Traveled Outside the [place] in Last 30 Days - Family History Known Family History: Positive: Other - thyroid disease in mother Negative: Hypertension, Diabetes - Social History Alcohol Use: Occasionally Hx Substance Use: No Substance Use Type: Reports: None Hx Tobacco Use: No Smoking Status (MU): Never Smoked Tobacco Have You Smoked in the Last Year: Yes Review of Systems Negative: Fever Positive: Other - Negative: rhinorrhea. Positive: Other - fast heart rate, chest discomfort. Negative: Palpitations, Chest Pain Positive: Shortness Of Breath - painful with breathing Positive: Other - Negative: bowel incontinence, constipation. Negative: incontinence Musculoskeletal: Other - Negative: urinary retention. Negative: Rash Neurological: Other - dizziness Positive: Headache All Other Systems Reviewed And Are Negative: Yes Physical Exam - Summary Physical Exam Summary: Appearance: Well-appearing, Well-nourished, lying in bed comfortably Skin: Warm, dry, no obvious rash Eyes: sclera anicteric, no conjunctival pallor ENT: mucous membranes moist, pharynx appears normal Neck: Supple, nontender Respiratory: Clear to auscultation, no signs of respiratory distress Cardiovascular: Normal S1, S2. No murmurs. Normal distal pulses in tibial and radial bilaterally. Abdomen: Soft, nontender, normal active bowel sounds present Musculoskeletal: Normal, Strength/ROM Intact Neurological: A&Ox3, awake and alert, mentation is normal, speech is fluent and appropriate Psychiatric: affect is normal, does not appear anxious or depressed Triage Information Reviewed: Yes Vital Signs On Initial Exam: Initial Vitals Temp Pulse Resp BP Pulse Ox 98.6 F 98 16 155/83 98 05/19/19 17:27 05/19/19 17:27 05/19/19 17:27 05/19/19 17:27 05/19/19 17:27 Vital Signs Reviewed: Yes Diagnostics - Vital Signs Vital Signs Temp Pulse Resp BP Pulse Ox 05/19/19 17:27 98.6 F 98 16 155/83 98 - Laboratory Result Diagrams: 05/19/19 19:30 05/19/19 19:30 Lab Statement: Any lab studies that have been ordered have been reviewed, and results considered in the medical decision making process. - Radiology CXR Radiology Interpretation Completed By: Radiologist Summary of Radiographic Findings: No acute process. ED physician has interpreted this report. Pending official report. - CT Chest/Thorax CTA CT Interpretation Completed By: Radiologist Summary of CT Findings: Impression: No pulmonary emboli. No additional findings to correlate with patient's symptomatology. ED physician has reviewed this imaging report. - EKG 1735 Cardiac Rate: Tachycardia - 103 bpm EKG Rhythm: Sinus Tachycardia Summary of EKG Findings: Sinus tachycardia at 103 BPM. P waves, QRS complex, and T waves are within normal limits, T waves and intervals are normal, no ischemic changes. This is an otherwise normal EKG. ED physician has reviewed and interpreted this EKG. Re-Evaluation - Re-Evaluation First Eval Re-Evaluation Time: 20:45 Change: Unchanged Comment: We discussed all results thus far and plan for CTA. Second Eval Re-Evaluation Time: 23:40 Change: Unchanged Comment: We discussed CTA results and discharge plan. Course/Dx - Course Course Of Treatment: Pt is a 28 y/o F with hx of SVT and anxiety with cc of constant tachycardia persisting since 1200 yesterday accompanied by mild chest discomfort, SOB with painful breathing, dizziness, and headaches. Upon physical exam, the pt exhibits no acute abnormalities. PERC positive due to oral contraceptive use. EKG at 1735 reveals sinus tachycardia at 103 BPM but is otherwise without any ischemic changes. Blood work reveals WBCs of 2.2, plt count of 128, BUN/Creatinine ratio of 20.7, glucose f 109, calcium of 8.5, and total protein of 5.9. D-Dimer is 308. Troponin is 0.00. Chest x-ray is negative. Pt fails PERC rule due to tachycardia and estrogenic hormone use. Chest/Thorax CTA is negative for PE or other significant findings. We discussed all findings and plan for discharge with PCP follow up. She understands and agrees with this plan. Dx of chest pain, viral syndrome, mild neutropenia, mild thrombocytopenia. - Diagnoses Provider Diagnoses: Chest pain, Viral syndrome, Neutropenia, Thrombocytopenia Discharge ED - Sign-Out/Discharge Documenting (check all that apply): Patient Departure - Patient will be discharged home. Patient Received Moderate/Deep Sedation with Procedure: No - Discharge Plan Condition: Stable Disposition: HOME Patient Education Materials: Chest Pain (ED), Viral Syndrome (ED) Referrals: Luis Luna DO [Primary Care Provider] - Additional Instructions: We did not find any evidence of anything immediately threatening to you tonight. However you should have close followup with your doctor, at the very least to repeat the abnormal blood tests. Please call tomorrow and I would like you to be seen by the end of the week. - Billing Disposition and Condition Condition: STABLE Disposition: Home - Attestation Statements Document Initiated by Heriberto: Yes Documenting Scribe: Skylar Lugo Provider For Whom Heriberto is Documenting (Include Credential): MD Nimco Roperibe Attestation: ISkylar scribed for Dr. Franky Yeboah MD on 05/20/19 at 1825. Scribe Documentation Reviewed: Yes Provider Attestation: The documentation as recorded by the Skylar arguello accurately reflects the service I personally performed and the decisions made by me, Dr. Franky Yeboah MD Status of Heriberto Document: Viewed
[2019-05-19 19:37] LABS: ABS Lymphocytes 0.7 10^3/ul (1.0-4.8); ABS Monocytes 0.3 10^3/ul (0-0.8); ABS Neutrophils 1.1 10^3/ul (1.5-7.7); Eosinophil % 0.7 %; Hematocrit 36 % (35-47); Hemoglobin 12.2 g/dL (12.0-16.0); Lymphocyte % 30.8 %; Mean Corpuscular HGB Conc 34 g/dL (31-36); Mean Corpuscular Hemoglobin 30 pg (27-31); Mean Corpuscular Volume 88 fL (80-97); Mean Platelet Volume 9.2 fL (7.4-10.4); Platelet Count 128 10^3/uL (150-450); Red Blood Count 4.08 10^6 /uL (3.70-4.87); Red Cell Distribution Width 13 % (10-15); White Blood Count 2.2 10^3/uL (3.5-10.8)
[2019-05-19 19:55] LABS: ALT 17 U/L (7-52); AST 19 U/L (13-39); Albumin 3.8 g/dL (3.2-5.2); Albumin/Globulin Ratio 1.8 (1-3); Alkaline Phosphatase 55 U/L (34-104); Anion Gap 5 mmol/L (2-11); BUN/Creatinine Ratio 20.7 (8-20); Blood Urea Nitrogen 12 mg/dL (6-24); CO2 Carbon Dioxide 25 mmol/L (22-32); Calcium 8.5 mg/dL (8.6-10.3); Chloride 107 mmol/L (101-111); EGFR African American 149.8 (>60); EGFR Non-African American 123.8 (>60); Globulin 2.1 g/dL (2-4); Glucose 109 mg/dL (70-100); Potassium 4.2 mmol/L (3.5-5.0); Sodium 137 mmol/L (135-145); Total Protein 5.9 g/dL (6.4-8.9)
[2019-05-19 20:02] LABS: HCG Pregnancy < 0.60 mIU/mL
[2019-05-19] MEDS ORDERED: Iohexol 350* (CONTRAST) 500 ML MDV IV ONE (20:46)
[2019-05-19 23:58] VITALS: BP 101/67
== END 2019-05-19 23:52 | disposition home or self-care (01) ==
LOC: ED 17:26
DX: R07.9 Chest pain, unspecified (principal); B34.9 Viral infection, unspecified; D70.9 Neutropenia, unspecified; D69.6 Thrombocytopenia, unspecified; I10 Essential (primary) hypertension; F41.9 Anxiety disorder, unspecified; Z79.899 Other long term (current) drug therapy; Z88.1 Allergy status to other antibiotic agents
CPT/HCPCS: 36415; 71046; 71275; 80053; 84484; 84702; 85025; 85379; 93005; 99283; Q9967

== ENCOUNTER 2019-07-20 07:23 | Emergency (ER) | payer BC ==
--- OUTSIDE RECORDS SUMMARY | 2019-07-20 07:51 | XMS REPORT | Continuity of Care Document ---
:1990 External Reference #:[id number] Author Name Luis Luna D.O. Address [address] [place] [id number] Problems Active Problems Provider Date Insomnia Luis Luna D.O. Onset: 10/20/2018 Adjustment disorder with depressed mood Luis Luna D.O. Onset: 2018 Social History Type Date Description Comments Sex Unknown Tobacco Use Start: Unknown Denies Cigarette Use ETOH Use Occassional Alcohol Tobacco Use Start: Unknown Patient has never smoked Recreational Drug Use Denies Drug Use Smoking Status Reviewed: 05/23/19 Patient has never smoked Exercise Type/Frequency Exercises sporadically Sun Exposure Uses sunscreen Seat Belt/Car Seat always uses seat belt Allergies, Adverse Reactions, Alerts Active Allergies Reaction Severity Comments Date Ceclor 09/25/2014 Medications Active Medications SIG Qnty Indications Ordering Date Provider Zoloft 1 by mouth every 90tabs F43.21 Luis Luna, 11/21/2018 50mg Tablets day D.O. Trazodone HCL take 1 tablet by 90tabs G47.00 Luis Luna, 10/20/2018 50mg mouth daily at D.O. Tablets bedtime for trouble sleeping Ventolin HFA 2 puffs q4-6 hours 18gm J20.9 Madeline Yusuf, 08/10/2016 as needed PA 108(90Base) mcg/Act Aerosol Fluticasone 2 sprays into each 48gm Luis Luna, 07/06/2015 Propionate nostril every day D.O. 50mcg/Act for nasal Suspension congestion History Medications Azithromycin take 2 tablets 6tabs Z11.2 Luis Luna, 12/15/2018 - 250mg by mouth one D.O. 12/20/2018 Tablets time on the first day then take 1 tablet by mouth daily for 4 days Immunizations CPT Code Status Date Vaccine Lot # [id number] Given 09/05/2017 MMR Virus Immunization 55588 Given Unknown Adacel or Boostrix, TDaP 69561 Given Unknown Tetanus Toxoid 00237 Given Unknown Flu, Split Virus 3Yrs Vital Signs Date Vital Result Comment 05/23/2019 4:31pm BP Systolic 120 mmHg BP Diastolic 70 mmHg Weight 146.50 lb 12/15/2018 9:21am BP Systolic 112 mmHg BP Diastolic 58 mmHg Height 64.25 inches 5'4.25" Weight 148.00 lb BMI (Body Mass Index) 25.2 kg/m2 Results Test Date Facility Test Result H/L Range Note Laboratory test [facility] D Dimer 308 ng/mL High Less Than 1 finding 6 [phone] Quantitative 230 CBC Auto Diff [facility] White Blood Count 2.2 10^3/uL Low 3.5-10.8 9 [phone] Red Blood Count 4.08 10^6/uL Normal 3.70-4.87 Hemoglobin 12.2 g/dL Normal 12.0-16.0 Hematocrit 36 % Normal 35-47 Mean Corpuscular Volume 88 fL Normal 80-97 Mean Corpuscular Hemoglobin 30 pg Normal 27-31 Mean Corpuscular HGB Conc 34 g/dL Normal 31-36 Red Cell Distribution Width 13 % Normal 10-15 Platelet Count 128 10^3/uL Low 150-450 Mean Platelet Volume 9.2 fL Normal 7.4-10.4 Abs Neutrophils 1.1 10^3/uL Low 1.5-7.7 Abs Lymphocytes 0.7 10^3/uL Low 1.0-4.8 Abs Monocytes 0.3 10^3/uL Normal 0-0.8 Abs Eosinophils 0.0 10^3/uL Normal 0-0.6 Abs Basophils 0.0 10^3/uL Normal 0-0.2 Abs Nucleated RBC 0.0 10^3/uL Granulocyte % 52.5 % Lymphocyte % 30.8 % Monocyte % 15.0 % Eosinophil % 0.7 % Basophil % 1.0 % Nucleated Red Blood Cells % 0.0 Comp Metabolic Panel 05/19/2019 [facility] Sodium 137 mmol/L Normal 135-145 [phone] Potassium 4.2 mmol/L Normal 3.5-5.0 Chloride 107 mmol/L Normal 101-111 Co2 Carbon Dioxide 25 mmol/L Normal 22-32 Anion Gap 5 mmol/L Normal 2-11 Glucose 109 mg/dL High 70-100 Blood Urea Nitrogen 12 mg/dL Normal 6-24 Creatinine 0.58 mg/dL Normal 0.51-0.95 BUN/Creatinine Ratio 20.7 High 8-20 Calcium 8.5 mg/dL Low 8.6-10.3 Total Protein 5.9 g/dL Low 6.4-8.9 Albumin 3.8 g/dL Normal 3.2-5.2 Globulin 2.1 g/dL Normal 2-4 Albumin/Globulin Ratio 1.8 Normal 1-3 Total Bilirubin 0.40 mg/dL Normal 0.2-1.0 Alkaline Phosphatase 55 U/L Normal 34-104 Alt 17 U/L Normal 7-52 Ast 19 U/L Normal 13-39 Egfr Non- 123.8 >60 Egfr 149.8 >60 2 Laboratory test 05/19/2019 [facility] Troponin-I (TnI) 0.00 ng/mL < 0.04 3 finding [phone] HCG < 0.60 mIU/mL 4 CBC Auto Diff 05/11/2019 [facility] White Blood 5.2 10^3/uL Normal 3.5-10.8 [phone] Count Red Blood Count 4.45 10^6/uL Normal 3.70-4.87 Hemoglobin 13.5 g/dL Normal 12.0-16.0 Hematocrit 39 % Normal 35-47 Mean Corpuscular Volume 88 fL Normal 80-97 Mean Corpuscular Hemoglobin 30 pg Normal 27-31 Mean Corpuscular HGB Conc 35 g/dL Normal 31-36 Red Cell Distribution Width 13 % Normal 10-15 Platelet Count 207 10^3/uL Normal 150-450 Mean Platelet Volume 10.2 fL Normal 7.4-10.4 Abs Neutrophils 2.1 10^3/uL Normal 1.5-7.7 Abs Lymphocytes 2.3 10^3/uL Normal 1.0-4.8 Abs Monocytes 0.4 10^3/uL Normal 0-0.8 Abs Eosinophils 0.3 10^3/uL Normal 0-0.6 Abs Basophils 0.0 10^3/uL Normal 0-0.2 Abs Nucleated RBC 0.0 10^3/uL Granulocyte % 40.9 % Lymphocyte % 44.8 % Monocyte % 8.2 % Eosinophil % 5.6 % Basophil % 0.5 % Nucleated Red Blood Cells % 0.2 Comp Metabolic Panel 05/11/2019 [facility] Sodium 141 mmol/L Normal 135-145 [phone] Potassium 4.4 mmol/L Normal 3.5-5.0 Chloride 105 mmol/L Normal 101-111 Co2 Carbon Dioxide 30 mmol/L Normal 22-32 Anion Gap 6 mmol/L Normal 2-11 Glucose 88 mg/dL Normal 70-100 Blood Urea Nitrogen 17 mg/dL Normal 6-24 Creatinine 0.65 mg/dL Normal 0.51-0.95 BUN/Creatinine Ratio 26.2 High 8-20 Calcium 9.0 mg/dL Normal 8.6-10.3 Total Protein 6.2 g/dL Low 6.4-8.9 Albumin 4.3 g/dL Normal 3.2-5.2 Globulin 1.9 g/dL Low 2-4 Albumin/Globulin Ratio 2.3 Normal 1-3 Total Bilirubin 0.70 mg/dL Normal 0.2-1.0 Alkaline Phosphatase 62 U/L Normal 34-104 Alt 12 U/L Normal 7-52 Ast 14 U/L Normal 13-39 Egfr Non- 108.5 >60 Egfr 131.3 >60 5 Laboratory test 05/11/2019 [facility] TSH (Thyroid 1.85 mcIU/mL Normal 0.34-5.60 finding [phone] Stim Horm) Vitamin B12 375 pg/mL Normal 180-914 6 Magnesium 1.8 mg/dL Low 1.9-2.7 Phosphorus 3.3 mg/dL Normal 2.5-5.0 Folic Acid (Folate) > 20.00 ng/mL >3.99 1 Please note: The following may produce a false positive D Dimer test: - Rheumatoid factor greater than 60 IU/ml - Plasma hemoglobin greater than 0.05 gm/dl - Bilirubin greater than 50 mg/dl - Lipids greater than 1000 mg/dl - FDP greater than 20 ug/ml 2 Because ethnic data is not always readily available, this report includes an eGFR for both -Americans and non- Americans. The National Kidney Disease Education Program (NKDEP) does not endorse the use of the MDRD equation for patients that are not between the ages of 18 and 70, are , have extremes of body size, muscle mass, or nutritional status, or are non- or non-. According to the National Kidney Foundation, irrespective of diagnosis, the stage of the disease is based on the level of kidney function: Stage Description GFR(mL/min/1.73 m(2)) 1 Kidney damage with normal or decreased GFR 90 2 Kidney damage with mild decrease in GFR 60-89 3 Moderate decrease in GFR 30-59 4 Severe decrease in GFR 15-29 5 Kidney failure <15 (or dialysis) 3 Troponin-I testing on Plasma Separator Tubes (PST) has a known false positive rate of 0.20-0.40%. All positive troponins reflex immediately to secondary confirmatory testing. Using the [employer] DxI 800 Access Immunoassay systems, the 99th percentile upper reference limit was demonstrated to be < 0.03 ng/mL. 4 <5.0 Negative 5.0 - 25.0 Indeterminate (Repeat testing recommended after 72 hours) >25.0 Positive Perimenopausal women can display HCG levels of up to 20 mIU/mL 5 Because ethnic data is not always readily available, this report includes an eGFR for both -Americans and non- Americans. The National Kidney Disease Education Program (NKDEP) does not endorse the use of the MDRD equation for patients that are not between the ages of 18 and 70, are , have extremes of body size, muscle mass, or nutritional status, or are non- or non-. According to the National Kidney Foundation, irrespective of diagnosis, the stage of the disease is based on the level of kidney function: Stage Description GFR(mL/min/1.73 m(2)) 1 Kidney damage with normal or decreased GFR 90 2 Kidney damage with mild decrease in GFR 60-89 3 Moderate decrease in GFR 30-59 4 Severe decrease in GFR 15-29 5 Kidney failure <15 (or dialysis) 6 Normal Range 180 to 914 Indeterminate Range 145 to 180 Deficient Range <145 Procedures Description No Information Available Medical Devices Description No Information Available Encounters Type Date Location Provider Dx Diagnosis Office Visit 05/23/2019 Main Office Luis Luna D.O. R07.89 Other chest pain 4:30p M79.605 Pain in left leg R00.2 Palpitations Office Visit 12/15/2018 9:15a Main Office Luis Luna, Z11.2 Encounter for D.OLucía screening for other bacterial diseases F43.21 Adjustment disorder with depressed mood Z79.899 Other custodial (current) drug therapy Assessments Date Code Description Provider 05/23/2019 R07.89 Other chest pain Luis Luna D.O. 05/23/2019 M79.605 Pain in left leg Luis Luna D.O. 05/23/2019 R00.2 Palpitations Luis Luna D.O. 12/15/2018 Z11.2 Encounter for screening for other bacterial Luis Luna D.O. diseases 12/15/2018 F43.21 Adjustment disorder with depressed mood Luis Luna D.O. 12/15/2018 Z79.899 Other crew person (current) drug therapy Luis Luna D.O. Plan of Treatment Future Appointment(s):06/14/2019 2:30 pm - Lius Luna D.O. at Main [facility]05/23/2019 - Luis Luna D.O.R07.89 Other chest painM79.605 Pain in left legR00.2 PalpitationsFollow up:as scheduled Functional Status Description No Information Available Mental Status Description No Information Available Referrals Refer to Reason for Referral Status Appt Date Shirley Restrepo MD right chest pain c/w peripheral neuropathy Created [facility] [address] [place] [id number] [phone]
--- OUTSIDE RECORDS SUMMARY | 2019-07-20 07:51 | XMS REPORT | Continuity of Care Document ---
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 Medicine Problems Description No Information Available Social History Type Date Description Comments Sex Unknown ETOH Use Occasionally consumes alcohol Tobacco Use Start: Unknown Patient has never smoked Smoking Status Reviewed: 07/02/19 Patient has never smoked Exercise Type/Frequency Exercises sporadically Allergies, Adverse Reactions, Alerts Active Allergies Reaction Severity Comments Date Cefaclor 07/02/2019 Medications Active Medications SIG Qnty Indications Ordering Date Provider Gabapentin take one cap by 90caps G25.81 Gideon Thorne 07/02/2019 100mg mouth at hs for 1 Aida Bishop Capsules wk. Increase to one cap po bid for 1 wk, Increase to one cap po tid after Trazodone HCL 1 by mouth every Unknown 50mg evening for trouble Tablets sleeping Ventolin HFA 2 inhalations every Unknown 4-6 hours as needed 108(90Base) mcg/Act Aerosol Fluticasone 2 sprays each Unknown Propionate nostril qd. 50mcg/Act Suspension Sertraline HCL 1 by mouth every Unknown 100mg day Tablets Mirena (52 MG) Unknown 20mcg/24HR IUD Multivitamin Adult 1 by mouth twice a Unknown week Tablets Immunizations Description No Information Available Vital Signs Date Vital Result Comment 07/02/2019 2:39pm Height 64 inches 5'4" Weight 154.00 lb Heart Rate 78 /min BP Systolic 132 mmHg BP Diastolic 80 mmHg BMI (Body Mass Index) 26.4 kg/m2 Results Description No Information Available Procedures Description No Information Available Medical Devices Description No Information Available Encounters Description No Information Available Assessments Date Code Description Provider 07/02/2019 G25.81 Restless legs syndrome Winston Meza NP Plan of Treatment Future Appointment(s):08/06/2019 4:00 pm - Winston Meza NP at [facility]07/02/2019 - Winston Meza NPG25.81 Restless legs syndromeNew Medication:Gabapentin 100 mg - take one cap by mouth at hs for 1 wk. Increase to one cap po bid for 1 wk, Increase to one cap po tid afterNew Xrays:MRI Brain W/Wo, Ordered: 07/02/19MRI Cervical Spine W/Wo, Ordered: MRI Thoracic Spine W/Wo, Ordered: 07/02/19Follow up:ONE MONTH Functional Status Description No Information Available Mental Status Description No Information Available Referrals Description No Information Available
--- OUTSIDE RECORDS SUMMARY | 2019-07-20 07:51 | XMS REPORT | Continuity of Care Document ---
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 [phone] Problems Active Problems Provider Date Vulval and/or perineal noninflammatory disorders Phylicia Shannon MD Onset: Social History Type Date Description Comments Sex Unknown Tobacco Use Start: Unknown Never Smoked Cigarettes Smoking Status Reviewed: 07/04/19 Never Smoked Cigarettes ETOH Use Occasionally consumes alcohol Tobacco Use Start: Unknown Patient has never smoked Recreational Drug Use Denies Drug Use Exercise Type/Frequency Exercises sporadically Seat Belt/Car Seat Always uses seat belt Allergies, Adverse Reactions, Alerts Active Allergies Reaction Severity Comments Date Ceclor 02/19/2015 Medications Active Medications SIG Qnty Indications Ordering Provider Date Mirena (52 MG) Phylicia Shannon MD 06/03/2019 20mcg/24HR IUD Womens Multivitamin 1 po qd Unknown Tablets Zoloft 1 by mouth every 30tabs Unknown 50mg Tablets day Trazodone HCL 1 tabs every Unknown 50mg night at bedtime Tablets prn Medications Administered in Office Medication SIG Qnty Indications Ordering Provider Date PT SCRN Tbco Id as Non User Phylicia Shannon MD 07/04/2019 Injection PT SCRN Tbco Id as Non User Phylicia Shannon MD 04/15/2019 Injection PT SCRN Tbco Id as Non User Hans Munoz M.D. 05/08/2018 Injection No PT Tbco SCRN RNG OLE Mccurdy 03/21/2018 Injection PT SCRN Tbco Id as Non User Layla OLE Lee 03/21/2018 Injection Immunizations CPT Code Status Date Vaccine Lot # [id number] Given 06/15/2017 Tetnus, Diptheria Toxoids And Acellular Pertussis, [id number] PT > 7Yrs Old 39779 Given 06/17/2015 Tetnus, Diptheria Toxoids And Acellular Pertussis, [id number] PT > 7Yrs Old Vital Signs Date Vital Result Comment 07/04/2019 3:26pm BP Systolic 128 mmHg BP Diastolic 72 mmHg Height 63 inches 5'3" Weight 157.00 lb BMI (Body Mass Index) 27.8 kg/m2 Last Menstrual Period 3292519 2 Parity 2 06/03/2019 8:04am BP Systolic 112 mmHg BP Diastolic 76 mmHg Height 63 inches 5'3" Weight 151.00 lb BMI (Body Mass Index) 26.7 kg/m2 Last Menstrual Period 7992089 2 Parity 2 Results Description No Information Available Procedures Date Code Description Status 06/03/2019 85517 Insert Intrauterine Device Completed Medical Devices Description No Information Available Encounters Type Date Location Provider Dx Diagnosis Office Visit 07/04/2019 [facility] Phylicia Shannon MD Z30.431 Encounter for routine 3:30p checking of intrauterine contracep dev Office Visit 04/15/2019 [facility] Phylicia Shannon MD 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.419 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) (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) w/o abn findings R68.82 Decreased libido N92.0 Excessive and frequent menstruation with regular cycle Assessments Date Code Description Provider 07/04/2019 Z30.431 Encounter for routine checking of intrauterine Phylicia Shannon MD contraceptive device 06/03/2019 Z30.430 Encounter for insertion of intrauterine Phylicia Shannon MD contraceptive device 06/03/2019 Z30.431 Encounter for routine checking of intrauterine Phylicia Shannon MD contraceptive device 04/15/2019 Z01.419 Encounter for gynecological examination Phylicia Shannon MD (general) (routine) without abnormal findings 04/15/2019 R68.82 Decreased libido Phylicia Shannon MD 04/15/2019 N92.0 Excessive and frequent menstruation with regular Phylicia Shannon MD cycle Plan of Treatment 05/08/2018 - Hans Munoz M.D.Z30.8 Encounter for other contraceptive managementComments:switch to tri sprintec / monitor her wlzhztF58.8 Other skin changesComments:pt to use heatpt reassured Functional Status Description No Information Available Mental Status Description No Information Available Referrals Description No Information Available
--- OUTSIDE RECORDS SUMMARY | 2019-07-20 07:51 | XMS REPORT | Continuity of Care Document ---
:1990 External Reference #:[id number] Author Name Luis Luna D.O. Address [address] [place] [id number] Care Team Providers Name Role Phone Shirley Restrepo MD - Neurology Care Team Information Zoology Teacher [phone] HCP given Care Team Information Zoology Teacher Unavailable Problems Active Problems Provider Date Insomnia Luis Luna D.O. Onset: 10/20/2018 Adjustment disorder with depressed mood Luis Luna D.O. Onset: 2018 Social History Type Date Description Comments Sex Unknown Tobacco Use Start: Unknown Denies Cigarette Use ETOH Use Occassional Alcohol Tobacco Use Start: Unknown Patient has never smoked Recreational Drug Use Denies Drug Use Smoking Status Reviewed: 06/14/19 Patient has never smoked Exercise Type/Frequency Exercises sporadically Sun Exposure Uses sunscreen Seat Belt/Car Seat always uses seat belt Allergies, Adverse Reactions, Alerts Active Allergies Reaction Severity Comments Date Ceclor 09/25/2014 Medications Active Medications SIG Qnty Indications Ordering Date Provider Sertraline HCL 1 by mouth every 90tabs F43.21 Luis Luna, 06/14/2019 100mg day D.O. Tablets Magox 400 1 tablets every 90tabs Luis Luna, 06/14/2019 night at bedtime as D.O. 400(241.3mg) mg directed Tablets Trazodone HCL take 1 tablet by 90tabs G47.00 Luis Luna, 10/20/2018 50mg mouth daily at D.O. Tablets bedtime for trouble sleeping Ventolin HFA 2 puffs q4-6 hours 18gm J20.9 Madeline Yusuf, 08/10/2016 as needed PA 108(90Base) mcg/Act Aerosol Fluticasone 2 sprays into each 48gm Luis Luna, 07/06/2015 Propionate nostril every day D.O. 50mcg/Act for nasal Suspension congestion Immunizations CPT Code Status Date Vaccine Lot # [id number] Given 05/31/2019 Influenza Virus Vaccine, Quadrivalent, Split, Preservative Free 73845 Given 09/05/2017 MMR Virus Immunization 24999 Given Unknown Adacel or Boostrix, TDaP 89269 Given Unknown Tetanus Toxoid 80274 Given Unknown Flu, Split Virus 3Yrs Vital Signs Date Vital Result Comment 06/14/2019 2:32pm BP Systolic 118 mmHg BP Diastolic 72 mmHg Weight 153.00 lb w/shoes 05/23/2019 4:31pm BP Systolic 120 mmHg BP Diastolic 70 mmHg Weight 146.50 lb Results Test Acquired Date Facility Test Result H/L Range Note Laboratory test 05/19/2019 [facility] D Dimer 308 ng/mL High Less Than 1 finding [phone] Quantitative 230 CBC Auto Diff 05/19/2019 [facility] White Blood 2.2 Low 3.5-10.8 [phone] Count 10^3/uL Red Blood Count 4.08 10^6/uL Normal 3.70-4.87 [...] Cells % 0.0 Comp Metabolic Panel 05/19/2019 [facility] Sodium 137 mmol/L Normal 135-145 [phone] Potassium 4.2 mmol/L Normal 3.5-5.0 Chloride 107 [...] Egfr 149.8 >60 2 Laboratory test 05/19/2019 [facility] Troponin-I (TnI) 0.00 ng/mL < 0.04 3 finding [phone] HCG < 0.60 mIU/mL 4 CBC Auto Diff 05/11/2019 [facility] White Blood 5.2 10^3/uL Normal 3.5-10.8 [phone] Count Red Blood Count 4.45 10^6/uL Normal [...] Cells % 0.2 Comp Metabolic Panel 05/11/2019 [facility] Sodium 141 mmol/L Normal 135-145 [phone] Potassium 4.4 mmol/L Normal 3.5-5.0 Chloride 105 [...] Egfr 131.3 >60 5 Laboratory test 05/11/2019 [facility] TSH (Thyroid 1.85 mcIU/mL Normal 0.34-5.60 finding [phone] Stim Horm) Vitamin B12 375 pg/mL Normal [...] immediately to secondary confirmatory testing. Using the LP33.TV DxI 800 Access Immunoassay systems, the 99th [...] 145 to 180 Deficient Range <145 Procedures Date Code Description Status 06/14/2019 82743 Omt 7-8 Body Regions Completed Medical Devices Description No Information Available Encounters Type Date Location Provider Dx Diagnosis Office Visit 06/14/2019 [facility] Luis Luna, F43.21 Adjustment disorder 2:30p D.O. with depressed mood M79.605 Pain in left leg Z79.899 Other superintendent terminal (current) drug therapy G47.00 Insomnia, unspecified M99.00 Segmental and somatic dysfunction of head region M99.01 Segmental and somatic dysfunction of cervical region M99.03 Segmental and somatic dysfunction of lumbar region M99.08 Segmental and somatic dysfunction of rib cage M99.05 Segmental and somatic dysfunction of pelvic region M99.04 Segmental and somatic dysfunction of sacral region M99.02 Segmental and somatic dysfunction of thoracic region Office Visit 05/23/2019 4:30p Main Office Luis Luna, R07.89 Other chest pain D.O. M79.605 Pain in left leg R00.2 Palpitations Assessments Date Code Description Provider 06/14/2019 F43.21 Adjustment disorder with depressed mood Luis Luna, D.O. 06/14/2019 M79.605 Pain in left leg Luis Luna, D.O. 06/14/2019 Z79.899 Other superintendent terminal (current) drug therapy Domenica Lunaon, D.O. 06/14/2019 G47.00 Insomnia, unspecified SoptetokDomenicaon, D.O. 06/14/2019 M99.00 Segmental and somatic dysfunction of head SopchakDomenicaon, D.O. region 06/14/2019 M99.01 Segmental and somatic dysfunction of cervical SopchakDomenicaon, D.O. region 06/14/2019 M99.03 Segmental and somatic dysfunction of lumbar SoptetokLuis , D.O. region 06/14/2019 M99.08 Segmental and somatic dysfunction of rib cage Luis Luna, D.O. 06/14/2019 M99.05 Segmental and somatic dysfunction of pelvic SopLuis beth , D.O. region 06/14/2019 M99.04 Segmental and somatic dysfunction of sacral SoptetokLuis , D.O. region 06/14/2019 M99.02 Segmental and somatic dysfunction of thoracic Luis Luna D.O. region 05/23/2019 R07.89 Other chest pain Luis Luna D.O. 05/23/2019 M79.605 Pain in left leg Luis Luna D.O. 05/23/2019 R00.2 Palpitations Luis Luna D.O. Plan of Treatment Future Appointment(s):07/15/2019 4:30 pm - Luis Luna D.O. at [facility]/14/2019 - Luis Luna D.O.F43.21 Adjustment disorder with depressed moodNew Medication:Sertraline HCL 100 mg - 1 by mouth every dayFollow up:1 month recheck qgzomeuO48.605 Pain in left legZ79.899 Other prison ( current) drug qwdovcsA50.00 Insomnia, tmootyugavsP32.00 Segmental and somatic dysfunction of head jalleqO42.01 Segmental and somatic dysfunction of cervical lfuiquK19.03 Segmental and somatic dysfunction of lumbar jvmbchT71.08 Segmental and somatic dysfunction of rib cageM99.05 Segmental and somatic dysfunction of pelvic vimzrlI25.04 Segmental and somatic dysfunction of sacral thkispS50.02 Segmental and somatic dysfunction of thoracic region Functional Status Description No Information Available Mental Status Description No Information Available Referrals Refer to Reason for Referral Status Appt Date Shirley Restrepo MD right chest pain c/w peripheral neuropathy Sent Consult and Treat - Follow up needed [facility] [address] [place] [phone]
--- OUTSIDE RECORDS SUMMARY | 2019-07-20 07:51 | XMS REPORT | Continuity of Care Document ---
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 [phone] Problems Active Problems Provider Date Vulval and/or perineal noninflammatory disorders Phylicia Shannon MD Onset: Social History Type Date Description Comments Sex Unknown Tobacco Use Start: Unknown Never Smoked Cigarettes Smoking Status Reviewed: 06/03/19 Never Smoked Cigarettes ETOH Use Occasionally consumes alcohol Tobacco Use Start: Unknown Patient has never smoked Recreational Drug Use Denies Drug Use Exercise Type/Frequency Exercises sporadically Seat Belt/Car Seat Always uses seat belt Allergies, Adverse Reactions, Alerts Active Allergies Reaction Severity Comments Date Ceclor 02/19/2015 Medications Active Medications SIG Qnty Indications Ordering Provider Date Womens Multivitamin 1 po qd Unknown Tablets [...] PT SCRN Tbco Id as Non User OLE Mccurdy 03/21/2018 Injection Immunizations CPT Code Status Date Vaccine Lot # [id number] Given 06/15/2017 Tetnus, Diptheria Toxoids And Acellular Pertussis, 7zz3z PT > 7Yrs Old [address]6301 Given 06/17/2015 Tetnus, Diptheria Toxoids And Acellular Pertussis, [id number] PT > 7Yrs Old Vital Signs Date Vital Result Comment 06/03/2019 8:04am BP Systolic 112 mmHg BP Diastolic 76 mmHg Height 63 inches 5'3" Weight 151.00 lb BMI (Body Mass Index) 26.7 kg/m2 Last Menstrual Period 2979541 2 Parity 2 04/15/2019 8:12am BP Systolic 138 mmHg BP Diastolic 90 mmHg Height 63 inches 5'3" Weight 143.00 lb BMI (Body Mass Index) 25.3 kg/m2 Last Menstrual Period 3983181 2 Parity 2 Results Description No Information Available Procedures Date Code Description Status 06/03/2019 71278 Insert Intrauterine Device Completed Medical Devices Description No Information Available Encounters Type Date Location Provider Dx Diagnosis Office Visit 04/15/2019 [facility] Phylicia Shannon MD 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) (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) w/o abn findings R68.82 Decreased libido N92.0 Excessive and frequent menstruation with regular cycle Assessments Date Code Description Provider 06/03/2019 Z30.430 Encounter for insertion of intrauterine Phylicia Shannon MD contraceptive device 04/15/2019 Z01.419 Encounter for gynecological examination Phylicia Shannon MD (general) (routine) without abnormal findings 04/15/2019 R68.82 Decreased libido Phylicia Shannon MD 04/15/2019 N92.0 Excessive and frequent menstruation with regular Phylicia Shannon MD cycle Plan of Treatment Future Appointment(s):07/04/2019 3:30 pm - Phylicia Shannon MD at [facility]06/2018 - Hans Munoz M.D.Z30.8 Encounter for other contraceptive managementComments:switch to tri sprintec / monitor her vypuszC36.8 Other skin changesComments:pt to use heatpt reassured Functional Status Description No Information Available Mental Status Description No Information Available Referrals Description No Information Available
[2019-07-20 07:55] VITALS: BP 121/68
--- NOTE | 2019-07-20 08:19 | UC ---
Throat Pain/Nasal [place] HPI - HPI Summary HPI Summary: 29-year-old woman comes in with a chief complaint of upper respiratory tract infection symptoms and left ear pain. Said the upper respiratory tract infection symptoms for about 3 days. Overnight she developed left ear pain. She did have a sinusitis about 2 weeks ago which she feels did resolve. She was on amoxicillin at that time. No shortness of breath or wheezing. - History of Current Complaint Chief Complaint: UCEar Stated Complaint: CONGESTION EAR Time Seen by Provider: 07/20/19 08:10 Hx Last Menstrual Period: Mirena IUD Pain Intensity: 0 - Allergies/Home Medications Allergies/Adverse Reactions: Allergies Allergy/AdvReac Type Severity Reaction Status Date / Time cefaclor [From [facility]] Allergy Rash Verified 07/20/19 07:50 Home Medications: Home Medications Guaifenesin/Pseudoephedrne HCl [Mucinex D] 1 tab PO Q12H PRN 07/20/19 [History Confirmed 07/20/19] Sertraline* [Zoloft*] 100 mg PO DAILY 07/20/19 [History Confirmed 07/20/19] PMH/Surg Hx/FS Hx/Imm Hx Previously Healthy: Yes - Surgical History Surgical History: Yes Surgery Procedure, Year, and Place: tonsillectomy - Family History Known Family History: Positive: Other - thyroid disease in mother Negative: Hypertension, Diabetes - Social History Alcohol Use: Occasionally Substance Use Type: None Smoking Status (MU): Never Smoked Tobacco Have You Smoked in the Last Year: Yes - Immunization History Most Recent Influenza Vaccination: immunized at work Most Recent Tetanus Shot: 06/17/15 Most Recent Pneumonia Vaccination: not indicated Review of Systems All Other Systems Reviewed And Are Negative: Yes Constitutional: Positive: Negative Skin: Positive: Negative Eyes: Positive: Negative ENT: Positive: Ear Ache, Nasal Discharge, Sinus Congestion Respiratory: Positive: Negative Cardiovascular: Positive: Negative Gastrointestinal: Positive: Negative Motor: Positive: Negative Neurovascular: Positive: Negative Musculoskeletal: Positive: Negative Neurological: Positive: Negative Psychological: Positive: Negative Is Patient Immunocompromised?: No Physical Exam Triage Information Reviewed: Yes Appearance: Well-Appearing, No Pain Distress, Well-Nourished Vital Signs: Initial Vital Signs Temp 98 F 07/20/19 07:48 Pulse 92 07/20/19 07:48 Resp 16 07/20/19 07:48 BP 121/68 07/20/19 07:48 Pulse Ox 98 07/20/19 07:48 Vital Signs Reviewed: Yes Eye Exam: Normal Eyes: Positive: Conjunctiva Clear ENT: Positive: Pharyngeal erythema, Nasal congestion, TM bulging - LEFT, TM red - LEFT Neck: Positive: Supple Respiratory: Positive: Lungs clear, Normal breath sounds, No respiratory distress Cardiovascular: Positive: RRR Musculoskeletal: Positive: Strength Intact, ROM Intact Neurological: Positive: Alert, Muscle Tone Normal Psychological: Positive: Age Appropriate Behavior Skin Exam: Normal Throat Pain/Nasal Course/Dx - Differential Dx/Diagnosis Provider Diagnosis: Left otitis media Discharge ED - Sign-Out/Discharge Documenting (check all that apply): Patient Departure All imaging exams completed and their final reports reviewed: No Studies - Discharge Plan Condition: Stable Disposition: HOME Prescriptions: Amoxicillin PO (*) [Amoxicillin 875 MG (*)] 875 mg PO BID #20 tab Patient Education Materials: Ear Infection (ED) Referrals: Luis Luna DO [Primary Care Provider] - Additional Instructions: FOLLOW UP WITH YOUR DOCTOR IF NOT COMPLETELY IMPROVED. GET REEVALUATED SOONER IF NOT IMPROVING OR WORSE OR ANY QUESTIONS OR CONCERNS. - Billing Disposition and Condition Condition: STABLE Disposition: Home
== END 2019-07-20 08:23 | disposition home or self-care (01) ==
LOC: UCCORT 07:23
DX: H66.92 Otitis media, unspecified, left ear (principal); J34.89 Other specified disorders of nose and nasal sinuses; Z88.1 Allergy status to other antibiotic agents
CPT/HCPCS: 99212; G0463

== ENCOUNTER 2022-07-01 10:19 | Inpatient (IN) ==
[2022-07-01] MEDS ORDERED: Promethazine INJ(RESTRICTED) 25 MG/ML 1 ml VIAL IV PRN (10:45)
[2022-07-01] MEDS ORDERED: Buffered Lidocaine 1% SYRIN 1 ml INTRADERM ONE (10:45)
[2022-07-01] MEDS ORDERED: Nalbuphine 10 MG/ML 1 ML VIAL IV PRN (10:45)
[2022-07-01] MEDS ORDERED: Lactated Ringers 1000 ml BAG 1,000 ML IV ONE ×2 (10:45→15:25)
[2022-07-01] MEDS ORDERED: Oxytocin in LR 20,000 MILLI.UNIT/1,000 ML BAG IV SCH ×2 (10:45→19:30)
[2022-07-01] MEDS ORDERED: Lactated Ringers 1000 ml BAG 1,000 ML IV SCH ×4 (11:00→20:00)
[2022-07-01 11:27] LABS: Urine Benzodiazepine Screen None Detected (None Detect); Urine Cannabinoids Screen None Detected (None Detect); Urine Opiates Screen None Detected (None Detect)
[2022-07-01 12:12] LABS: ABS Eosinophils 0.1 10^3/ul (0-0.6); ABS Lymphocytes 1.7 10^3/ul (1.0-4.8); ABS Monocytes 0.5 10^3/ul (0-0.8); Eosinophil % 1.9 %; Hematocrit 32 % (35-47); Hemoglobin 10.2 g/dL (12.0-16.0); Lymphocyte % 26.7 %; Mean Corpuscular HGB Conc 32 g/dL (31-36); Mean Corpuscular Hemoglobin 27 pg (27-31); Mean Corpuscular Volume 83 fL (80-97); Mean Platelet Volume 9.7 fL (7.4-10.4); Platelet Count 187 10^3/uL (150-450); Red Blood Count 3.78 10^6 /uL (3.70-4.87); Red Cell Distribution Width 13 % (10-15); White Blood Count 6.3 10^3/uL (3.5-10.8)
[2022-07-01] MEDS ORDERED: EPINEPHrine SULFITE FREE 1 MG/ML ONE (14:21)
[2022-07-01] MEDS ORDERED: OBEPIDURAL (200 ML) 200 ML EPIDURAL ONE (14:22)
[2022-07-01] MEDS ORDERED: Lidocaine 1% VIAL 10 MG/ML VIAL 30 ML ONE (14:23)
[2022-07-01] MEDS ORDERED: Lactated Ringers 1000 ml BAG 500 ML IV PRN (15:25)
[2022-07-01] MEDS ORDERED: Sodium Citrate/Citric Acid LIQ 15 ML UDC PO PRN (15:25)
[2022-07-01] MEDS ORDERED: Phenylephrine 40 mcg/mL 10mL (400mcg) SYRINGE IV PUSH PRN ×2 (15:25)
[2022-07-01] MEDS ORDERED: OBEPIDURAL (200 ML) 200 ML EPIDURAL SCH (16:00)
[2022-07-01 16:25] LABS: Urine Appearance Cloudy; Urine Bilirubin Negative (Negative); Urine Blood 1+ (Negative); Urine Color Yellow; Urine Glucose 1+(50 mg/dL) (Negative); Urine Ketones 1+ (Negative); Urine Nitrite Negative (Negative); Urine Protein Negative (Negative); Urine Specific Gravity 1.016 (1.002-1.030); Urine Urobilinogen Negative (Negative)
[2022-07-01 16:29] LABS: Urine Bacteria Absent (Absent); Urine Red Blood Cell 3+(>10/hpf) (Absent); Urine Squamous Epithelial Cell Present (Absent); Urine White Blood Cell Trace(0-5/hpf) (Absent)
[2022-07-01] MEDS ORDERED: Glycerin ADULT 2.4 gm SUPP PR PRN (19:19)
[2022-07-01] MEDS ORDERED: Witch Hazel PAD JAR TOPICAL PRN (19:19)
[2022-07-01] MEDS ORDERED: Dibucaine 1% OINT 28.35 GM TUBE PR PRN (19:19)
[2022-07-02 07:05] LABS: ABS Eosinophils 0.1 10^3/ul (0-0.6); ABS Lymphocytes 2.3 10^3/ul (1.0-4.8); ABS Monocytes 0.5 10^3/ul (0-0.8); ABS Neutrophils 5.7 10^3/ul (1.5-7.7); Eosinophil % 1.2 %; Hematocrit 30 % (35-47); Hemoglobin 9.9 g/dL (12.0-16.0); Lymphocyte % 26.2 %; Mean Corpuscular HGB Conc 33 g/dL (31-36); Mean Corpuscular Hemoglobin 27 pg (27-31); Mean Corpuscular Volume 83 fL (80-97); Mean Platelet Volume 9.5 fL (7.4-10.4); Platelet Count 179 10^3/uL (150-450); Red Blood Count 3.61 10^6 /uL (3.70-4.87); Red Cell Distribution Width 13 % (10-15); White Blood Count 8.6 10^3/uL (3.5-10.8)
[2022-07-02 20:43] VITALS: BP 130/65
== END 2022-07-02 20:20 | disposition home or self-care (01) | DRG 560 ==
LOC: MCHOBOUT 10:19 → MCHOB 11:03
PROVIDERS: ADMIT Obstetrics & Gynecology; ATTEND Obstetrics & Gynecology

== ENCOUNTER 2024-04-01 07:56 | Inpatient (IN) ==
[2024-04-01] MEDS ORDERED: Prochlorperazine 5 mg/ml 2 ml VIAL (10 mg) IV PRN (08:40)
[2024-04-01] MEDS ORDERED: Nalbuphine 10 MG/ML 1 ML VIAL IV PRN (08:40)
[2024-04-01] MEDS ORDERED: Lidocaine 1% VIAL 10 MG/ML 30 ML VIAL INJ PRN (08:40)
[2024-04-01 10:52] LABS: ABS Eosinophils 0.1 10^3/uL (0.0-0.5); ABS Lymphocytes 1.5 10^3/uL (1.0-4.8); ABS Monocytes 0.3 10^3/uL (0.0-0.9); ABS Neutrophils 4.6 10^3/uL (1.5-7.6); ABS Nucleated RBC 0.01 10^3/ul; Hematocrit 29.7 % (35-45); Hemoglobin 9.6 g/dL (11.5-14.3); Lymphocyte % 22.2 %; Mean Corpuscular Hemoglobin 25.3 pg (27-33); Mean Corpuscular Hgb Conc 32.4 g/dL (31-36); Mean Corpuscular Volume 77.9 fL (80-97); Mean Platelet Volume 9.5 fL (7.5-11.2); Nucleated Red Blood Cells % 0.2 %/100WBC (0.0-0.8); Platelet Count 175 10^3/uL (150-450); Red Blood Count 3.82 10^6/uL (3.63-4.92); Red Cell Distribution Width 14.2 % (12-17); White Blood Count 6.6 10^3/uL (3.8-11.8)
[2024-04-01 11:58] LABS: Urine Benzodiazepine Screen None Detected (None Detect); Urine Cannabinoids Screen None Detected (None Detect); Urine Opiates Screen None Detected (None Detect)
[2024-04-01] MEDS: Lactated Ringers 1000 ml BAG 1,000 ML IV ONE ×2 (13:15→22:11)
[2024-04-01] MEDS: Oxytocin in LR 20,000 MILLI.UNIT/1,000 ML BAG IV SCH ×2 (13:16→22:10)
[2024-04-01] MEDS: Lactated Ringers 1000 ml BAG 1,000 ML IV SCH ×2 (15:07→22:11)
[2024-04-01] MEDS: OBEPIDURAL (200 ML) 200 ML EPIDURAL ONE (15:14)
[2024-04-01] MEDS ORDERED: Sodium Citrate/Citric Acid LIQ 15 ML UDC PO PRN (15:36)
[2024-04-01] MEDS ORDERED: Phenylephrine 40 mcg/mL 10mL (400mcg) SYRINGE IV PUSH PRN ×2 (15:36)
[2024-04-01 17:04] LABS: Urine Appearance Clear; Urine Bilirubin Negative (Negative); Urine Blood Negative (Negative); Urine Color Colorless; Urine Glucose Negative (Negative); Urine Ketones Negative (Negative); Urine Nitrite Negative (Negative); Urine Protein Negative (Negative); Urine Specific Gravity 1.006 (1.002-1.030); Urine Urobilinogen Negative (Negative)
[2024-04-01] MEDS: OBEPIDURAL (200 ML) 200 ML EPIDURAL SCH (18:43)
[2024-04-01] MEDS ORDERED: Glycerin ADULT 2.4 gm SUPP PR PRN (18:45)
[2024-04-01] MEDS ORDERED: Calcium Carb (TUMS) 500 mg CHEW TAB PO PRN (18:47)
[2024-04-01] MEDS ORDERED: Lactated Ringers 1000 ml BAG 1,000 ML IV SCH (19:00)
[2024-04-01] MEDS: Dibucaine 1% OINT 28.35 GM TUBE PR PRN (19:18)
[2024-04-01] MEDS: Witch Hazel PAD JAR TOPICAL PRN (19:18)
[2024-04-01] MEDS: Buffered Lidocaine 1% SYRIN 1 ml INTRADERM ONE (22:09)
[2024-04-01] MEDS: NS 0.9% 1000 ml BAG 1,000 ML IV SCH (22:09)
[2024-04-01] MEDS: Lidocaine 1.5% EPI 1:200,000 30 ML SDV ONE (22:10)
[2024-04-02 06:39] LABS: ABS Basophils 0.1 10^3/uL (0.0-0.1); ABS Eosinophils 0.2 10^3/uL (0.0-0.5); ABS Lymphocytes 2.4 10^3/uL (1.0-4.8); ABS Monocytes 0.5 10^3/uL (0.0-0.9); ABS Neutrophils 5.1 10^3/uL (1.5-7.6); Eosinophil % 2.7 %; Hematocrit 27.4 % (35-45); Hemoglobin 9.1 g/dL (11.5-14.3); Lymphocyte % 28.7 %; Mean Corpuscular Hgb Conc 33.1 g/dL (31-36); Mean Corpuscular Volume 78.6 fL (80-97); Mean Platelet Volume 9.5 fL (7.5-11.2); Platelet Count 147 10^3/uL (150-450); Red Blood Count 3.49 10^6/uL (3.63-4.92); Red Cell Distribution Width 14.2 % (12-17); White Blood Count 8.3 10^3/uL (3.8-11.8)
[2024-04-02 16:17] VITALS: BP 134/73
== END 2024-04-02 17:55 | disposition home or self-care (01) | DRG 560 ==
LOC: MCHOBOUT 07:56 → MCHOB 08:22
PROVIDERS: ADMIT Obstetrics & Gynecology; ATTEND Obstetrics & Gynecology